=== PATIENT | female | born 1975 | race Hispanic/Latino ===

== ENCOUNTER → 2021-02-18 | Outpatient (CLI) | payer OTHER | END | disposition home or self-care (01) | LOC: SHCH 10:05 | PROVIDERS: ATTEND Internal Medicine Cardiovascular Disease | DX: I87.2 Venous insufficiency (chronic) (peripheral) (principal) | CPT/HCPCS: 93970 ==

== ENCOUNTER → 2021-03-20 | Outpatient (CLI) | payer OTHER | END | disposition home or self-care (01) | LOC: SHCH 11:50 | PROVIDERS: ATTEND Internal Medicine Cardiovascular Disease | DX: Z09 Encounter for follow-up examination after completed treatment for conditions other than malignant neoplasm (principal); I87.2 Venous insufficiency (chronic) (peripheral) | CPT/HCPCS: 93971 ==

== ENCOUNTER → 2021-11-04 | Outpatient (CLI) | payer OTHER | END | disposition home or self-care (01) | LOC: SHCH 10:26 | PROVIDERS: ATTEND Internal Medicine Cardiovascular Disease | DX: I73.9 Peripheral vascular disease, unspecified (principal) | CPT/HCPCS: 93925 ==